=== PATIENT | female | born 1990 | race Caucasian/White ===

== ENCOUNTER 2025-02-25 06:22 | Day surgery (SDC) | payer BC, SELFPAY | END 2025-02-25 12:35 | disposition home or self-care (01) | LOC: GI 06:22 | PROVIDERS: ATTENDING PHYSICIAN Internal Medicine Gastroenterology | DX: K52.9 Noninfective gastroenteritis and colitis, unspecified (principal); K63.3 Ulcer of intestine; K62.89 Other specified diseases of anus and rectum; K64.0 First degree hemorrhoids; R19.4 Change in bowel habit | CPT/HCPCS: 45380; 88305 ==